=== PATIENT | female | born 1975 | race Two or more races ===

== ENCOUNTER 2017-09-18 07:41 | Day surgery (SDC) | payer OTHER ==
[2017-09-13 15:18] VITALS: BMI 54.3
[2017-09-18] MEDS ORDERED: LIDOCAINE HCL 1%, 10 MG/ML (20ML VIAL) ONE ×2 (09:37→10:07)
[2017-09-18] MEDS ORDERED: MIDAZOLAM HCL 2 MG/2 ML SINGLE DOSE VIAL ONE ×2 (09:40)
[2017-09-18] MEDS ORDERED: LIDOCAINE HCL 1%, 10 MG/ML (20ML VIAL) NR ONE ×2 (10:03→10:22)
[2017-09-18] MEDS ORDERED: LIDOCAINE HCL/PF 2% SDV 5ML VIAL ONE (10:04)
[2017-09-18] MEDS ORDERED: oxyCODONE HCL 5 MG TABLET PO PRN ×2 (10:35)
[2017-09-18] MEDS ORDERED: LACTATED RINGERS SOLUTION 1,000 ML IV SCH (10:45)
[2017-09-18 11:13] VITALS: TEMP 98
[2017-09-18 12:56] VITALS: BP 135/84; PULSE 81
--- NOTE | 2017-09-18 19:36 | OP ---
DATE OF OPERATION: 09/18/2017 PREOPERATIVE DIAGNOSIS: Left breast lactiferous fistula. POSTOPERATIVE DIAGNOSIS: Left breast lactiferous fistula. PROCEDURE: Excision of left breast lactiferous fistula. SURGEON: Jaci Bustos MD ANESTHESIA: Local, IV sedation. ESTIMATED BLOOD LOSS: Minimal. COMPLICATIONS: None. This was a sterile procedure. INDICATION FOR PROCEDURE: Patient presented with an infection with an opening at the periareolar location in the left breast 10 o'clock location. I first treated with antibiotics that helped get rid of the acute infection. However, she had a persistent drainage, and I felt like she had a fistula. Therefore, my recommendation was excision of this to prevent further infection. The procedure was discussed with all her questions answered. PROCEDURE IN DETAIL: Patient was brought to [facility] and taken into the operating room, and after IV sedation, the left breast was prepped and draped in usual sterile fashion. The area of the fistula in the upper inner left breast was with 1% lidocaine without epinephrine. A lacrimal duct probe was used to probe the fistula as well as the nipple and to make sure the connection was completely excised. A radial incision was made to include the skin entry of this fistula up to the base of the nipple, and this entire area was excised en bloc and sent to Pathology for permanent section. Hemostasis was assured with electrocautery, and the parenchyma was approximated with interrupted 0 Vicryl, skin approximated with interrupted 0 Vicryl and running 4-0 Monocryl. A sterile dressing with Tegaderm and 4 x 4's applied. She tolerated the procedure well, was taken to recovery in good condition. Sukumar [id number]
--- NOTE | 2017-09-19 18:57 | PATH ---
Surgical Pathology Report Patient Name: IAN MCKEON [facility]. Rec. #: [id number] /Age/Gender: 1975 (Age: 41) / F Account: [id number] Location: [facility] SURGICAL Taken: 09/18/2017 Received: 09/18/2017 Reported: 09/19/2017 Physicians: Jaci Bustos M.D. Specimen(s) Received LEFT BREAST MASS Clinical History Left breast lactiferous fistula Final Diagnosis BREAST, LEFT, MASS, EXCISION: BENIGN BREAST TISSUE WITH LARGE LACTIFEROUS DUCTS, FOCAL HEMORRHAGE, ACUTE AND CHRONIC INFLAMMATION, AND STROMAL FIBROSIS. SKIN WITHOUT SIGNIFICANT PATHOLOGIC FINDINGS. Electronically Signed Bushra Meeks M.D. Gross Description Received in formalin labeled "left breast mass," is a 4.0 x 2.7 x 2.7 cm irregular, unoriented portion of fibroadipose tissue. The specimen is surfaced by a 3.0 x 1.0 cm brown, elliptical, unremarkable portion of skin. There is no needle localization wire present. The specimen is inked green and serially sectioned. Sectioning reveals focal subepidermal discoloration. No definitive mass is identified. Separately received within the same container are 2 irregular, unoriented fragments of fibroadipose tissue measuring 1.3 x 1.0 x 0.4 cm and 1.5 x 1.3 x 1.3 cm. Sectioning reveals unremarkable fibroadipose tissue. Pattern Technician sections are submitted in 9 cassettes as follows: [id number] submitted equal opportunity representative sections of largest specimen; [id number] submitted separately received tissue fragments. Time to formalin fixation: Less than one minute Total formalin fixation time: Approximately 8 hours. 09/18/201709/18/2017
== END 2017-09-18 12:20 | disposition home or self-care (01) ==
LOC: JASU-SURG 07:41
PROVIDERS: ATTEND Surgery
PROC: 08BX0ZZ Excision of Right Lacrimal Duct, Open Approach (ICD-10-PCS; principal; 2017-09-18 09:00)
DX: N61.0 Mastitis without abscess (principal)
CPT/HCPCS: 84703; 88307-TC; 94760